=== PATIENT | male | born 1980 | race Caucasian/White ===

== ENCOUNTER 2021-08-25 14:58 | Emergency (ER) | payer SELFPAY ==
[~2021-08-25] VITALS: Ht 172.7 cm; Wt 72.0 kg
[2021-08-25 16:07] LABS: BASOPHILS % 0.6 % (0.0-2.0); EOSINOPHILS % 0.9 % (0.0-5.0); HEMATOCRIT. 43.5 % (42.0-52.0); MEAN CORPUSCULAR HEMOGLOBIN 30.1 pg (28.0-32.0); MEAN CORPUSCULAR VOLUME 87.3 fL (80.0-94.0); MEAN PLATELET VOLUME 9.4 fl (7.4-10.4); MONOCYTES % 6.8 % (2.0-8.0); NEUTROPHILS % 71.7 % (40.0-76.0); PLATELET 165 x1000/uL (130-400); RED BLOOD CELL COUNT 4.98 mill/uL (4.7-6.1); RED CELL DISTRIBUTION WIDTH 13.9 % (11.6-14.6)
[2021-08-25 16:27] LABS: CHLORIDE 106 mEq/L (98-107)
[2021-08-25 19:33] VITALS: BP 141/91
== END 2021-08-25 19:34 | disposition home or self-care (01) ==
LOC: ER 14:58
DX: R03.0 Elevated blood-pressure reading, without diagnosis of hypertension (principal)
CPT/HCPCS: 36415; 80053; 84484; 85025; 93005; 99285